=== PATIENT | male | born 1960 | race Caucasian/White ===

== ENCOUNTER 2021-02-16 03:19 | Emergency (ER) | payer BC ==
[~2021-02-16] VITALS: Ht 188 cm; Wt 135.4 kg
[~2021-02-16 03:19] MED LIST: PRED20TA PO
--- NOTE | 2021-02-16 03:52 | PHYS DOC ---
Past History Past Medical History: Hypertension Past Surgical History: Other Additional Past Surgical Histo: sinus surgery Alcohol Use: None Drug Use: None Adult General Chief Complaint Chief Complaint: CONGESTION HPI HPI Patient is a 61-year-old male with seasonal allergies who presents to the emergency department with nasal congestion. States he has had nasal congestion over the last couple of days and has tried some Afrin at home without success. Denies any recent travels, traumas, fevers, headache, sore throat, chest pain, shortness of breath, abdominal pain, nausea, vomiting, dysuria, hematuria or blood in the stool. Denies any known ill contacts. Review of Systems Review of Systems Review of systems otherwise unremarkable except noted in HPI Allergies Allergies Allergies Coded Allergies Type Severity Reaction Last Updated Verified atorvastatin Allergy Intermediate rash 11/16/16 Yes Physical Exam Physical Exam Constitutional: Well developed, well nourished, no acute distress, non-toxic appearance. [] HENT: Normocephalic, atraumatic, bilateral external ears normal, oropharynx moist, no oral exudates, nose normal, appears to have mild nasal congestion bilaterally. [] Eyes: conjunctiva normal, no discharge. [] Neck: Normal range of motion, no tenderness, supple, no stridor. [] Cardiovascular:Heart rate regular rhythm, no murmur [] Lungs & Thorax: Bilateral breath sounds clear to auscultation [] Extremities: No tenderness, no cyanosis, no clubbing, ROM intact, no edema. [] Neurologic: Alert and oriented X 3, no focal deficits noted. [] Psychologic: Affect normal, judgement normal, mood normal. [] Current Patient Data Vital Signs Vital Signs Date Time Temp Pulse Resp B/P (MAP) Pulse Ox O2 Delivery O2 Flow Rate FiO2 02/16/21 03:27 98.0 78 18 186/109 (134) 95 Room Air EKG EKG [] Radiology/Procedures Radiology/Procedures [] Heart Score C/O Chest Pain: No Risk Factors: Risk Factors: DM, Current or recent (<one month) smoker, HTN, HLP, family hist ory of CAD, obesity. Risk Scores: Risk Factors: DM, Current or recent (<one month) smoker, HTN, HLP, family history of CAD, obesity. Course & Med Decision Making Course & Med Decision Making Patient is a 61-year-old male that presents with seasonal allergies and congestion Vital signs notable for hypertension. Physical exam noted above. Started on Flonase and Benadryl. Discussed symptom treatment at home. Advised to follow-up in the morning with primary care physician to set up a follow-up visit Gave return precautions to the ED. Patient grateful, verbalized understanding a nd agreed with plan of discharge. [] Dragon Disclaimer Dragon Disclaimer This electronic medical record was generated, in whole or in part, using a voice recognition dictation system. Departure Departure: Impression: Primary Impression: Allergic rhinitis Disposition: HOME / SELF CARE / HOMELESS Condition: GOOD Referrals: TONI MARTIN MD (PCP) Patient Instructions: Allergic Rhinitis Additional Instructions: Thanks for coming into the emergency department tonight and allowing us to take care of you. Please read the attached information about to go over things we discussed. You can begin to use Flonase, and an antihistamine such as Benadryl or Zyrtec that are [id number] for your allergic rhinitis symptoms. Please follow-up in the morning with your primary care physician to go over your ED visit and discuss any further evaluation and treatment. If you need to use a decongestant, something like Coricidin will not raise your blood pressure like the ones you have been using over the last couple of days. Please also discuss your blood pressure management with your primary care physician. Please come back to the ED with new or concerning symptoms as discussed. ERNST ORELLANA MD Feb 16, 2021 03:52
[2021-02-16 04:01] VITALS: BP 169/88
[2021-02-16] MEDS ORDERED: diphenhydrAMINE HCL 25 MG CAPSULE PO ONE (04:30)
[2021-02-16] MEDS ORDERED: FLUTICASONE 50MCG/NASAL SPRAY 16GM BOTTLE. NS ONE (04:30)
== END 2021-02-16 04:07 | disposition home or self-care (01) ==
LOC: ER 03:19
DX: J30.9 Allergic rhinitis, unspecified (principal); I10 Essential (primary) hypertension; Z88.8 Allergy status to other drugs, medicaments and biological substances
CPT/HCPCS: 99283; Q0163